=== PATIENT | male | born 1985 | race Two or more races ===

== ENCOUNTER → 2024-08-12 | Emergency (ER) | payer OTHER ==
[~2024-08-12] VITALS: Ht 180.3 cm; Wt 69.9 kg
[~2024-08-12] MED LIST: LEVO-T150 MCG PO
[2024-08-12 12:32] LABS: HEMATOCRIT 42.1 % (39.0-48.0); HEMOGLOBIN 14.2 g/dL (13-16.00); MEAN CORPUSCULAR HEMOGLOBIN 30.4 pg (27.00-32.0); MEAN CORPUSCULAR HGB CONC 33.8 g/dl (32.0-36.0); PLATELET COUNT 212 K/uL (150-450); RED BLOOD COUNT 4.67 M/uL (4.00-6.00); RED CELL DISTRIBUTION WIDTH 13.5 % (11.5-14.5)
[2024-08-12 12:54] LABS: CALCIUM 9.5 mg/dL (8.5-10.1); CREATININE SERUM 1.05 mg/dL (0.70-1.30); GFR 79.48; POTASSIUM 4.58 mEq/L (3.5-5.1)
[2024-08-12 14:17] LABS: PH,URINE 7.5 (5.0-8.0); URINE APPEARANCE Clear; URINE BILIRRUBIN Negative (NEGATIVE); URINE BLOOD Negative; URINE COLOR Yellow; URINE GLUCOSE Negative (NEGATIVE); URINE KETONE Negative (NEGATIVE); URINE LEUKOCYTE Negative; URINE NITRATE Negative; URINE PROTEIN Negative (NEGATIVE); URINE UROBILINOGEN 0.2 E.U./dl
[2024-08-12 14:21] LABS: URINE BACTERIA 8.5 uL (0.0-1933)
[2024-08-12 14:35] LABS: URINE RBC 0.2 uL (0.0-20.8); URINE WBC 0.9 uL (0.0-23.2)
== END | disposition home or self-care (01) ==
LOC: ER 10:45
PROVIDERS: Emergency Medicine
DX: R10.2 Pelvic and perineal pain (principal)

== ENCOUNTER → 2024-08-28 | Emergency (ER) | payer OTHER ==
[~2024-08-28] VITALS: Ht 180.3 cm; Wt 81.6 kg
[~2024-08-28] MED LIST changes: +ACETAMINOPHEN 500 MG GEL..CAP PO STA
== END | disposition home or self-care (01) ==
LOC: ER 10:21
DX: T81.72XA Complication of vein following a procedure, not elsewhere classified, initial encounter (principal); I80.8 Phlebitis and thrombophlebitis of other sites

== ENCOUNTER 2024-09-21 19:14 | Emergency (ER) | payer OTHER ==
[~2024-09-21] VITALS: Ht 180.3 cm; Wt 74.8 kg
[~2024-09-21 19:14] MED LIST changes: -ACETAMINOPHEN 500 MG GEL..CAP PO STA
[2024-09-21 20:25] LABS: HEMATOCRIT 42.3 % (39.0-48.0); HEMOGLOBIN 14.7 g/dL (13-16.00); MEAN CELL VOLUME 89.2 fL (80.0-100.00); MEAN CORPUSCULAR HEMOGLOBIN 30.9 pg (27.00-32.0); MEAN CORPUSCULAR HGB CONC 34.7 g/dl (32.0-36.0); PLATELET COUNT 204 K/uL (150-450); RED BLOOD COUNT 4.74 M/uL (4.00-6.00); RED CELL DISTRIBUTION WIDTH 13.1 % (11.5-14.5)
== END 2024-09-21 21:48 | disposition home or self-care (01) ==
LOC: ER 19:15
PROVIDERS: General Practice
DX: R53.81 Other malaise (principal); R06.02 Shortness of breath

== ENCOUNTER 2025-02-26 10:09 | Outpatient (CLI) | payer OTHER | END 2025-02-26 10:18 | disposition home or self-care (01) | LOC: SONOGRAMA 10:09 | DX: E03.9 Hypothyroidism, unspecified (principal); E04.1 Nontoxic single thyroid nodule ==

== ENCOUNTER → 2025-02-26 11:43 | Outpatient (CLI) | payer OTHER ==
[2025-02-26 12:08] LABS: BASO % 1.6 % (0.1-1.2); EOS # 0.19 (0.04-0.54); EOS % 3.8 % (0.7-7.0); LYMPH # 1.48 (1.18-3.74); LYMPH % 29.5 % (19.3-53.1); MEAN PLATELET VOLUME 9.30 fl (9.4-12.4); MONO # 0.39 (0.24-0.82); MONO % 7.8 % (4.7-12.5); NEUT # 2.86 (1.56-6.13); NEUT % 57.1 % (34.0-71.1); RED CELL DISTRIBUTION WIDTH 12.8 % (11.6-14.4)
[2025-02-26 12:12] LABS: URINE APPEARANCE Clear; URINE BILIRRUBIN Negative (NEGATIVE); URINE BLOOD Negative; URINE COLOR Yellow; URINE GLUCOSE Negative (NEGATIVE); URINE KETONE Trace (NEGATIVE); URINE LEUKOCYTE Negative; URINE NITRATE Negative; URINE PROTEIN Negative (NEGATIVE); URINE UROBILINOGEN 0.2 E.U./dl
[2025-02-26 12:16] LABS: URINE WBC 1.9 uL (0.0-23.2)
[2025-02-26 12:49] LABS: ALT/SGPT 28.0 U/L (12-78); AST/SGOT 16.0 U/L (15-37); BILIRUBIN TOTAL 1.41 mg/dL (0.3-1.2); BUN CREA RATIO 18.0 (7.0-25.0); CHOL HDL RATIO 1.7 (0-5.0); CREATININE SERUM 1.06 mg/dL (0.70-1.30); GFR 78.61; GLOBULINA 3.1 G/DL (2.4-3.5); GLUCOSE FASTING 81.0 mg/dL (65-100); HDL 96.0 mg/dl (40-60); LDL 59.0 mg/dl (0-130); OSMOLALITY SERUM 283.0 MOSM/KG (275-295); T4 TOTAL 11.98 UG/DL (4.5-12.1); TSH 0.586 uIU/mL (0.358-3.74); VLDL 5.0 (0-39)
[2025-02-26 12:56] LABS: URINE BACTERIA 2.4 uL (0.0-1933); URINE CAST 0.00 uL (0.0-1.40); URINE EPITHELIAL CELLS 0.3 uL (0.0-38.8); URINE RBC 0.7 uL (0.0-20.8)
== END | disposition home or self-care (01) ==
LOC: LAB 11:43
DX: N39.0 Urinary tract infection, site not specified (principal); E11.9 Type 2 diabetes mellitus without complications; E78.5 Hyperlipidemia, unspecified; E03.9 Hypothyroidism, unspecified